=== PATIENT | female | born 1960 | race Caucasian/White ===

== ENCOUNTER → 2017-02-10 | Day surgery (SDC) | payer OTHER ==
[~2017-02-10] MED LIST: ACETAMINOPHEN 1000 MG/100 ML VIAL IV ONE; BACITRACIN IM FOR SOLN 50,000 UNIT VIAL ONE; BUPIVACAINE/EPINEPHRINE 0.25% 50 ML VIAL ONE; GENTAMICIN SULFATE 80 MG/2 ML VIAL ONE; LACTATED RINGER'S 1000 ML INJ 1,000 ML ONE; LIDOCAINE 1%/EPINEPHrine 1:100,000 SOLN 20 ML VIAL ONE; MEPERIDINE HCL 25 MG/ML VIAL ONE; MIDAZOLAM HCL 2 MG/2 ML VIAL ONE; ONDANSETRON HCL 4 MG/2 ML VIAL IV PUSH ONE; PROPOFOL 200 MG/20 ML AMP IV ONE; SODIUM CHLORIDE 0.9% 20 ML VIAL ONE; ceFAZolin INJ 1,000 MG VIAL ONE
--- NOTE | 2017-02-10 11:53 | TN ---
cc: ISHAAN DC M.D. 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 PROCEDURE Bilateral augmentation mastopexy. SURGEON Ishaan Dc MD ANESTHESIA LMA general. A total of 60 cc, 30 cc per breast of a combination of 0.5% lidocaine with epinephrine mixed with 0.25% Marcaine on a 2:1 ratio. COMPLICATIONS None. DRAINS None. IMPLANT DATA The right breast implant is a textured Style 110 Natrelle, 270 cc, serial number [id number]. Implant data of the left breast implant device is style 110 Natrelle, volume 240 cc, serial number [id number]. PROCEDURE She was properly consented, marked and anesthetized, the skin sterilized with Betadine solution, sterile draping applied. The markings were as follows: NAC was set a 21 cm from the sternal notch, 42 mm areolar diameter. After the area was properly prepped and draped in the usual fashion, through an infra-areolar vertical incision the subfascial plane was encountered and resected to create a pocket after which assured meticulous hemostasis and irrigation with antibiotic solution was carried out. It is to be mentioned that from the beginning isolation of nipple-areolar complex was properly done after the prepping of the area utilizing Tegaderm. As we proceeded with the contralateral breast, I proceeded to create the pocket. The implant was introduced utilizing the no-touch technique and isolation of the skin as well. As mentioned prior, due to significant unevenness in volume and shape, the right breast had a 270 cc implant and 240 was placed on the left side. The wounds were closed in multiple layers of 2-0 Monocryl suture. The patient was sat up. Tailor tack technique was properly carried out at this point. The epithelial space was properly marked, de-epithelialized and the skin was finally closed in multiple 2-0 Monocryl suture layers in the following fashion: On the left breast an inverted T was necessary. 2-0 Monocryl suture was utilized to close this in the dermis and subcu. The NAC was brought up in the new anatomical position utilizing a pin-wheel 2-0 PTFE suture reinforced with 2-0 Monocryl suture and 2-0 Quill. The right breast was de-epithelialized in same fashion and in the same fashion was properly closed as previously described. For the skin I utilized the tissue glue/Prineo Dermabond and that followed by absorbent dressings and a snug brassiere. The patient tolerated the procedure well. Good viability of all the tissue was noted at the end of the case. The patient was awakened and extubated in the operating room. She was transferred back to the Postanesthesia Care Unit in stable condition. No complications appreciated. The patient tolerated the procedure fairly well. Ishaan Dc MD SMZ/JENNYFER /11:23 AM /11:42 AM
== END | disposition home or self-care (01) ==
LOC: ESDC 08:52
PROVIDERS: ATTEND Plastic Surgery
DX: Z41.1 Encounter for cosmetic surgery (principal)
CPT/HCPCS: 00402; 19316; 19325; C1789; J0131; J0690; J1580; J2175; J2250; J2405; J3010; J7120